=== PATIENT | female | born 1935 | race Caucasian/White ===

== ENCOUNTER 2021-02-13 16:55 | Emergency (ER) | payer MEDICARE, BC ==
[~2021-02-13] VITALS: Ht 167.6 cm; Wt 72.6 kg
[2021-02-13] MEDS ORDERED: FLUOXETINE HCL20 M1 PO (17:14)
[2021-02-13] MEDS ORDERED: VASOTEC5 MG PO (17:14)
[2021-02-13] MEDS ORDERED: HYDROCHLOROTH12.5 M2 PO (17:14)
[2021-02-13] MEDS ORDERED: LEVO-T50 MCG PO (17:14)
[2021-02-13] MEDS ORDERED: CELEBREX 200 M200 MG PO (17:15)
[2021-02-13] MEDS ORDERED: TEMAZEPAM7.5 MG PO (17:15)
[2021-02-13] MEDS ORDERED: ZETIA10 MG PO (17:15)
[2021-02-13] MEDS ORDERED: ALPRAZOLAM XR3 MG PO (17:16)
[2021-02-13 18:11] LABS: ABSOLUTE BASOPHILS 0.2 thou/uL (0.0-0.2); ABSOLUTE EOSINOPHILS 0.1 thou/uL (0.0-0.7); ABSOLUTE LYMPHOCYTES 2.7 thou/uL (0.8-5.3); ABSOLUTE MONOCYTES 0.9 thou/uL (0.0-1.2); ABSOLUTE NEUTROPHILS 8.5 thou/uL (1.6-8.1); BASOPHILS 1.3 %; EOSINOPHILS 0.7 %; HEMATOCRIT 44.8 % (37.0-47.0); HEMOGLOBIN 14.7 gm/dL (12.0-15.0); LYMPHOCYTES 21.7 %; MCH 31.5 pg (26.0-34.0); MCHC 32.8 g/dL (28.0-37.0); MONOCYTES 7.2 %; MPV 8.9 fl. (7.2-11.1); NUCLEATED RBCS 0 /100WBC; PLATELET COUNT* 247 thou/uL (150-400); POLYS 69.1 %; RBC 4.67 mil/uL (4.20-5.00); RDW-CV 14.9 % (10.5-14.5); WBC 12.4 thou/uL (4.0-11.0)
[2021-02-13 18:26] LABS: APTT 20.5 Seconds (25.0-31.3); PROTIME 10.4 Seconds (9.20-11.50)
[2021-02-13 18:30] LABS: CALCIUM 8.6 mg/dL (8.5-10.1); CREATININE 1.3 mg/dL (0.6-1.3); POTASSIUM 4.6 mmol/L (3.5-5.1)
[2021-02-13 18:31] VITALS: BP 136/53
[2021-02-13 18:35] LABS: ALBUMIN 3.4 g/dL (3.4-5.0); TOTAL BILIRUBIN 0.6 mg/dL (<0.1-1.0); TOTAL PROTEIN 6.6 g/dL (6.4-8.2)
== END 2021-02-13 18:33 | disposition short-term general hospital (02) ==
LOC: M.ERS 16:55
PROVIDERS: Family Medicine
DX: S06.6X9A Traumatic subarachnoid hemorrhage with loss of consciousness of unspecified duration, initial encounter (principal); M19.90 Unspecified osteoarthritis, unspecified site; E03.9 Hypothyroidism, unspecified; J44.9 Chronic obstructive pulmonary disease, unspecified; I10 Essential (primary) hypertension; K21.9 Gastro-esophageal reflux disease without esophagitis; E78.00 Pure hypercholesterolemia, unspecified; F32.9 Major depressive disorder, single episode, unspecified; F17.210 Nicotine dependence, cigarettes, uncomplicated; Z79.899 Other long term (current) drug therapy; Z88.5 Allergy status to narcotic agent; W19.XXXA Unspecified fall, initial encounter; Y93.89 Activity, other specified; Y92.89 Other specified places as the place of occurrence of the external cause; Y99.8 Other external cause status